=== PATIENT | male | born 1935 | race Caucasian/White ===

== ENCOUNTER 2016-11-19 17:50 | Emergency (ER) | payer BC ==
[2016-12-14] MEDS ORDERED: COUMADIN2.5 MG PO (08:49)
[2016-12-14] MEDS ORDERED: MIRTAZAPINE15 MG PO (08:49)
[2016-12-14] MEDS ORDERED: VITAMIN C500 M1 PO (08:49)
[2016-12-14] MEDS ORDERED: PROMOD946 ML PO (08:49)
[2016-12-14] MEDS ORDERED: DAILY VITE1 EACH PO (08:50)
[2016-12-14] MEDS ORDERED: VITAMIN B-121000 MCG PO (08:50)
[2016-12-14] MEDS ORDERED: VITAMIN D31000 UNI1 PO (08:50)
[2016-12-14] MEDS ORDERED: SYNTHROID25 MCG PO (08:51)
[2016-12-14] MEDS ORDERED: KLOR-CON-1010 MEQ PO (08:51)
[2016-12-14] MEDS ORDERED: OYSTER SHELL C500 MG PO (08:52)
[2016-12-14] MEDS ORDERED: CULTURELLE1 EACH PO (08:52)
[2016-12-14] MEDS ORDERED: LIPITOR40 MG PO (08:52)
[2016-12-14] MEDS ORDERED: PEPCID20 MG PO (08:52)
[2016-12-14] MEDS ORDERED: LASIX40 MG PO (08:52)
[2016-12-14] MEDS ORDERED: ASPIR 8181 MG PO (08:53)
[2016-12-14] MEDS ORDERED: CLOTRIMAZOLE-BE45 GM TOP (08:54)
[2016-12-14] MEDS ORDERED: NYSTATIN1 EAC1 TOP (09:00)
[2016-12-14] MEDS ORDERED: COLESTID1 GM PO (09:01)
[2016-12-14] MEDS ORDERED: ACETAMINOPHEN325 MG PO (09:01)
[2016-12-14] MEDS ORDERED: ENSURE LIQUID237 ML PO (09:01)
== END 2016-11-20 00:38 | disposition critical access hospital (66) ==
LOC: ER 17:50
DX: L89.159 Pressure ulcer of sacral region, unspecified stage (principal); R53.1 Weakness; D72.829 Elevated white blood cell count, unspecified; E86.0 Dehydration; R11.2 Nausea with vomiting, unspecified; I48.2 Chronic atrial fibrillation; F03.90 Unspecified dementia, unspecified severity, without behavioral disturbance, psychotic disturbance, mood disturbance, and anxiety; I10 Essential (primary) hypertension; E03.9 Hypothyroidism, unspecified; K21.9 Gastro-esophageal reflux disease without esophagitis; Z79.899 Other long term (current) drug therapy; Z79.82 Long term (current) use of aspirin; Z79.01 Long term (current) use of anticoagulants; Z88.0 Allergy status to penicillin
CPT/HCPCS: 36415; 36556; 51702; 96365; 96366; 96367; J3370

== ENCOUNTER 2016-11-19 17:50 | Inpatient (IN) | payer BC ==
--- NOTE | 2016-11-20 04:15 | NUR ---
0200 11/20/2015 UNABLE TO FLUSH CARRASCO CATHETER PLACED IN THE ER, NO URINE VISIBLE IN CARRASCO BAG OR TUBING. CATHETER REMOVED. UNABLE TO INSERT COUDE CATHETER. PT VOIDED 100 ML OF TEA COLORED URINE IN URINAL. NOTIFIED DR. FELIPE AND ORDERS RECEIVED.
--- NOTE | 2016-11-23 14:15 | NUR ---
1200- HAS SEEN AND ASSESSED PT AT THIS TIME. UPDATED ON PT CONDITION AND ABNORMAL LABS. SEE N/O'S
--- NOTE | 2016-11-24 11:11 | NUR ---
1000-MD HAS SEEN AND ASSESSED PT THIS AM. UPDATED ON PT CONDITION. N/O'S NOTED
--- NOTE | 2016-11-24 17:02 | NUR ---
8700-REPORT HAS BEEN GIVEN TO Dione JACKSON RN [facility]. PT TO BE TRANSFERRED TO ROOM 318 VIA BED AND STAFF AT THIS TIME. FAMILY AWARE
--- NOTE | 2016-11-24 17:40 | NUR ---
1720 pt.here from icu no c/o skin w/d color pink resp. easy non-labored, has o2 on at 2 liters per n/c, enteric precautions, pt. on air bed
[2016-12-14] MEDS ORDERED: COUMADIN2.5 MG PO (08:49)
[2016-12-14] MEDS ORDERED: PROMOD946 ML PO (08:49)
[2016-12-14] MEDS ORDERED: VITAMIN C500 M1 PO (08:49)
[2016-12-14] MEDS ORDERED: MIRTAZAPINE15 MG PO (08:49)
[2016-12-14] MEDS ORDERED: VITAMIN D31000 UNI1 PO (08:50)
[2016-12-14] MEDS ORDERED: DAILY VITE1 EACH PO (08:50)
[2016-12-14] MEDS ORDERED: VITAMIN B-121000 MCG PO (08:50)
[2016-12-14] MEDS ORDERED: SYNTHROID25 MCG PO (08:51)
[2016-12-14] MEDS ORDERED: KLOR-CON-1010 MEQ PO (08:51)
[2016-12-14] MEDS ORDERED: OYSTER SHELL C500 MG PO (08:52)
[2016-12-14] MEDS ORDERED: LIPITOR40 MG PO (08:52)
[2016-12-14] MEDS ORDERED: CULTURELLE1 EACH PO (08:52)
[2016-12-14] MEDS ORDERED: PEPCID20 MG PO (08:52)
[2016-12-14] MEDS ORDERED: LASIX40 MG PO (08:52)
[2016-12-14] MEDS ORDERED: ASPIR 8181 MG PO (08:53)
[2016-12-14] MEDS ORDERED: CLOTRIMAZOLE-BE45 GM TOP (08:54)
[2016-12-14] MEDS ORDERED: NYSTATIN1 EAC1 TOP (09:00)
[2016-12-14] MEDS ORDERED: COLESTID1 GM PO (09:01)
[2016-12-14] MEDS ORDERED: ACETAMINOPHEN325 MG PO (09:01)
[2016-12-14] MEDS ORDERED: ENSURE LIQUID237 ML PO (09:01)
== END 2016-11-26 11:30 | disposition swing bed (61) | DRG 872 ==
LOC: ER 17:50 → ICU 11-20 00:30 → MED 11-24 17:08
PROVIDERS: ADMIT Internal Medicine
DX: A41.9 Sepsis, unspecified organism (principal); A04.7 Enterocolitis due to Clostridium difficile; N17.9 Acute kidney failure, unspecified; E46 Unspecified protein-calorie malnutrition; R65.20 Severe sepsis without septic shock; I49.5 Sick sinus syndrome; Z95.0 Presence of cardiac pacemaker; Z68.32 Body mass index [BMI] 32.0-32.9, adult; I48.0 Paroxysmal atrial fibrillation; Z86.73 Personal history of transient ischemic attack (TIA), and cerebral infarction without residual deficits; F03.90 Unspecified dementia, unspecified severity, without behavioral disturbance, psychotic disturbance, mood disturbance, and anxiety; I10 Essential (primary) hypertension; E78.5 Hyperlipidemia, unspecified; G89.29 Other chronic pain; Z79.82 Long term (current) use of aspirin; Z79.01 Long term (current) use of anticoagulants; Z79.899 Other long term (current) drug therapy; Z88.0 Allergy status to penicillin; Z82.49 Family history of ischemic heart disease and other diseases of the circulatory system; I95.9 Hypotension, unspecified; E86.0 Dehydration; E87.6 Hypokalemia; E83.42 Hypomagnesemia; L89.152 Pressure ulcer of sacral region, stage 2
CPT/HCPCS: 36415; 92610; 97162-GP; 97166; J3370; J7050; P9047

== ENCOUNTER 2016-11-26 14:21 | Inpatient (IN) | payer BC ==
[2016-12-14] MEDS ORDERED: VITAMIN C500 M1 PO (08:49)
[2016-12-14] MEDS ORDERED: PROMOD946 ML PO (08:49)
[2016-12-14] MEDS ORDERED: MIRTAZAPINE15 MG PO (08:49)
[2016-12-14] MEDS ORDERED: COUMADIN2.5 MG PO (08:49)
[2016-12-14] MEDS ORDERED: VITAMIN D31000 UNI1 PO (08:50)
[2016-12-14] MEDS ORDERED: VITAMIN B-121000 MCG PO (08:50)
[2016-12-14] MEDS ORDERED: DAILY VITE1 EACH PO (08:50)
[2016-12-14] MEDS ORDERED: KLOR-CON-1010 MEQ PO (08:51)
[2016-12-14] MEDS ORDERED: SYNTHROID25 MCG PO (08:51)
[2016-12-14] MEDS ORDERED: LIPITOR40 MG PO (08:52)
[2016-12-14] MEDS ORDERED: PEPCID20 MG PO (08:52)
[2016-12-14] MEDS ORDERED: LASIX40 MG PO (08:52)
[2016-12-14] MEDS ORDERED: OYSTER SHELL C500 MG PO (08:52)
[2016-12-14] MEDS ORDERED: CULTURELLE1 EACH PO (08:52)
[2016-12-14] MEDS ORDERED: ASPIR 8181 MG PO (08:53)
[2016-12-14] MEDS ORDERED: CLOTRIMAZOLE-BE45 GM TOP (08:54)
[2016-12-14] MEDS ORDERED: NYSTATIN1 EAC1 TOP (09:00)
[2016-12-14] MEDS ORDERED: ENSURE LIQUID237 ML PO (09:01)
[2016-12-14] MEDS ORDERED: COLESTID1 GM PO (09:01)
[2016-12-14] MEDS ORDERED: ACETAMINOPHEN325 MG PO (09:01)
== END 2016-12-10 15:30 | disposition home health service (06) | DRG 371 ==
LOC: SWI 14:21
PROVIDERS: ADMIT Internal Medicine
DX: A04.7 Enterocolitis due to Clostridium difficile (principal); S72.009A Fracture of unspecified part of neck of unspecified femur, initial encounter for closed fracture; A41.9 Sepsis, unspecified organism; R65.20 Severe sepsis without septic shock; N17.9 Acute kidney failure, unspecified; I48.0 Paroxysmal atrial fibrillation; R53.1 Weakness; Z86.73 Personal history of transient ischemic attack (TIA), and cerebral infarction without residual deficits; I10 Essential (primary) hypertension; E03.9 Hypothyroidism, unspecified; F03.90 Unspecified dementia, unspecified severity, without behavioral disturbance, psychotic disturbance, mood disturbance, and anxiety; E78.5 Hyperlipidemia, unspecified; G89.29 Other chronic pain; Z95.0 Presence of cardiac pacemaker; Z79.82 Long term (current) use of aspirin; Z79.01 Long term (current) use of anticoagulants; Z79.899 Other long term (current) drug therapy; Z88.0 Allergy status to penicillin; Z82.49 Family history of ischemic heart disease and other diseases of the circulatory system
CPT/HCPCS: 87507; 97161-GP; 97166